=== PATIENT | male | born 1945 | race Native Hawaiian/Other Pacific Islander ===

== ENCOUNTER 2016-12-12 11:24 | Outpatient (CLI) | payer OTHER, MEDICARE ==
[2016-12-12 12:40] LABS: POTASSIUM 4.6 mmol/L (3.6-5.2); SODIUM 136 mmol/L (136-145)
[2016-12-12 12:47] LABS: PLATELET COUNT 209 K/uL (142-355)
== END 2016-12-12 20:12 | disposition home or self-care (01) ==
LOC: LABW 11:24 → CT 15:00 → LABW 20:12
PROVIDERS: Nurse Practitioner Family
DX: R10.84 Generalized abdominal pain (principal)
CPT/HCPCS: 36415; 80053; 82150; 83690; 85027; Q9963

== ENCOUNTER 2016-12-13 08:41 | Outpatient (CLI) | payer OTHER, MEDICARE | END 2016-12-13 22:03 | disposition home or self-care (01) | LOC: LAB 08:41 | DX: N40.0 Benign prostatic hyperplasia without lower urinary tract symptoms (principal) | CPT/HCPCS: 84153 ==

== ENCOUNTER 2017-07-11 09:49 | Emergency (ER) | payer OTHER, MEDICARE ==
[~2017-07-11] VITALS: Ht 185.4 cm; Wt 81.2 kg
[2017-07-11 10:07] VITALS: TEMP 97.8
[2017-07-11 10:41] LABS: PLATELET COUNT 155 K/uL (142-355)
[2017-07-11 10:51] LABS: POTASSIUM 3.9 mmol/L (3.6-5.2)
[2017-07-11 11:57] VITALS: BP 153/90
== END 2017-07-11 11:59 | disposition home or self-care (01) ==
LOC: ED 09:49
DX: G44.1 Vascular headache, not elsewhere classified (principal); H91.8X1 Other specified hearing loss, right ear; R00.0 Tachycardia, unspecified
CPT/HCPCS: 36415; 80053; 85027; 93005; 99283

== ENCOUNTER 2017-10-25 09:26 | Outpatient (CLI) | payer OTHER, MEDICARE | END 2017-10-25 10:30 | disposition home or self-care (01) | LOC: LABW 09:26 | DX: E29.1 Testicular hypofunction (principal) | CPT/HCPCS: 36415; 84402; 84403 ==

== ENCOUNTER 2019-05-30 10:56 | Outpatient (CLI) | payer OTHER, MEDICARE | END 2019-05-30 23:25 | disposition home or self-care (01) | LOC: RAD 10:56 | DX: M79.671 Pain in right foot (principal) ==

== ENCOUNTER 2019-11-28 07:01 | Emergency (ER) | payer OTHER, MEDICARE ==
[~2019-11-28] VITALS: Ht 188 cm; Wt 89.8 kg
[2019-11-28 08:11] LABS: PLATELET COUNT 145 K/uL (142-355)
[2019-11-28 08:18] LABS: POTASSIUM 4.7 mmol/L (3.6-5.2)
[2019-11-28 09:20] VITALS: BP 144/66; TEMP 98.1
== END 2019-11-28 09:22 | disposition home or self-care (01) ==
LOC: ED 07:01
PROVIDERS: Family Medicine
DX: R30.0 Dysuria (principal); N30.80 Other cystitis without hematuria
CPT/HCPCS: 80053; 81000; 85027; 99283

== ENCOUNTER 2020-08-24 15:50 | Outpatient (CLI) | payer OTHER, MEDICARE ==
[2020-08-24 16:13] LABS: PLATELET COUNT 160 K/uL (142-355)
[2020-08-24 16:31] LABS: POTASSIUM 4.8 mmol/L (3.6-5.2)
== END 2020-08-24 22:31 | disposition home or self-care (01) ==
LOC: LABW 15:50
PROVIDERS: Urology
DX: E29.1 Testicular hypofunction (principal)
CPT/HCPCS: 36415; 80053; 84146; 84153; 84402; 84403; 84443; 85027

== ENCOUNTER 2020-11-09 08:29 | Outpatient (CLI) | payer OTHER, MEDICARE | END 2020-11-09 19:59 | disposition home or self-care (01) | LOC: LAB 08:29 | PROVIDERS: ATTEND Nurse Practitioner Family | DX: U07.1 COVID-19 (principal); Z20.828 Contact with and (suspected) exposure to other viral communicable diseases; R05 Cough; R50.9 Fever, unspecified; R09.81 Nasal congestion; R51.9 Headache, unspecified | CPT/HCPCS: 87635; G2023; U0003 ==

== ENCOUNTER 2021-03-16 15:48 | Outpatient (CLI) | payer OTHER, MEDICARE | END 2021-03-16 20:32 | disposition home or self-care (01) | LOC: RESP 15:48 | PROVIDERS: ATTEND Nurse Practitioner Family | DX: G64 Other disorders of peripheral nervous system (principal); R00.1 Bradycardia, unspecified | CPT/HCPCS: 93005 ==

== ENCOUNTER 2021-05-12 09:10 | Outpatient (CLI) | payer OTHER, MEDICARE ==
[2021-05-12 09:51] LABS: PLATELET COUNT 149 K/uL (142-355)
[2021-05-12 09:54] LABS: POTASSIUM 4.3 mmol/L (3.6-5.2)
== END 2021-05-12 23:00 | disposition home or self-care (01) ==
LOC: LABW 09:10
PROVIDERS: ATTEND Urology
DX: E29.1 Testicular hypofunction (principal)
CPT/HCPCS: 36415; 80053; 80061; 84153; 84402; 84403; 84443; 85027

== ENCOUNTER → 2021-08-19 | Outpatient (CLI) | payer OTHER, MEDICARE | LOC: LAB 19:52 | PROVIDERS: ATTEND Internal Medicine | DX: R10.84 Generalized abdominal pain (principal); R19.7 Diarrhea, unspecified | CPT/HCPCS: 82272; 83630; 87015; 87045; 87328; 87329; 87899 ==

== ENCOUNTER 2022-09-12 09:52 | Outpatient (CLI) | payer OTHER, MEDICARE | END 2022-09-12 20:40 | disposition home or self-care (01) | LOC: LABW 09:52 | PROVIDERS: ATTEND Nurse Practitioner Primary Care | DX: R53.83 Other fatigue (principal); Z13.220 Encounter for screening for lipoid disorders; E53.8 Deficiency of other specified B group vitamins; Z79.899 Other long term (current) drug therapy | CPT/HCPCS: 36415; 80061; 82607; 84443; 86644; 86645; 86664; 86665 ==

== ENCOUNTER 2022-10-10 09:00 | Outpatient (CLI) | payer OTHER, MEDICARE | END 2022-10-10 19:35 | disposition home or self-care (01) | LOC: US 09:00 | PROVIDERS: ATTEND Nurse Practitioner Family | DX: R00.1 Bradycardia, unspecified (principal); I10 Essential (primary) hypertension | CPT/HCPCS: 93005 ==

== ENCOUNTER 2022-11-14 10:03 | Outpatient (CLI) | payer OTHER, MEDICARE ==
[2022-11-14 10:29] LABS: PLATELET COUNT 136 K/uL (142-355)
[2022-11-14 10:39] LABS: POTASSIUM 4.1 mmol/L (3.6-5.2); SODIUM 138 mmol/L (136-145)
== END 2022-11-14 19:15 | disposition home or self-care (01) ==
LOC: LABW 10:03
PROVIDERS: ATTEND Nurse Practitioner Family
DX: R53.83 Other fatigue (principal); E03.8 Other specified hypothyroidism
CPT/HCPCS: 36415; 80053; 82550; 82553; 84443; 84484; 85027; 93005

== ENCOUNTER 2022-11-19 07:53 | Outpatient (CLI) | payer OTHER, MEDICARE ==
[~2022-11-19] VITALS: Ht 188 cm; Wt 88.9 kg
== END 2022-11-19 21:35 | disposition home or self-care (01) ==
LOC: NM 07:53
PROVIDERS: ATTEND Nurse Practitioner Primary Care
DX: R07.89 Other chest pain (principal)
CPT/HCPCS: A9500; J2785

== ENCOUNTER 2022-12-11 14:52 | Outpatient (CLI) | payer OTHER, MEDICARE | END 2022-12-11 19:23 | disposition home or self-care (01) | LOC: LABW 14:52 | PROVIDERS: ATTEND Nurse Practitioner Family | DX: R19.7 Diarrhea, unspecified (principal) | CPT/HCPCS: 83630; 87015; 87045; 87324; 87328; 87329; 87449; 87899 ==

== ENCOUNTER 2023-04-05 07:30 | Outpatient (CLI) | payer OTHER ==
[2023-04-05 08:24] LABS: PLATELET COUNT 149 K/uL (142-355)
[2023-04-05 08:54] LABS: POTASSIUM 4.1 mmol/L (3.6-5.2)
== END 2023-04-05 18:53 | disposition home or self-care (01) ==
LOC: LABW 07:30
PROVIDERS: ATTEND Urology
DX: E29.1 Testicular hypofunction (principal); M79.7 Fibromyalgia; Z79.899 Other long term (current) drug therapy; N40.0 Benign prostatic hyperplasia without lower urinary tract symptoms
CPT/HCPCS: 36415; 80053; 80061; 84153; 84402; 84403; 84443; 85027

== ENCOUNTER 2023-08-21 11:24 | Outpatient (CLI) | payer OTHER, MEDICARE | END 2023-08-21 19:29 | disposition home or self-care (01) | LOC: LAB 11:24 | PROVIDERS: ATTEND Nurse Practitioner Family | DX: R19.7 Diarrhea, unspecified (principal) | CPT/HCPCS: 83630; 87015; 87045; 87324; 87328; 87329; 87449; 87899 ==